=== PATIENT | male | born 1980 | race Caucasian/White ===

== ENCOUNTER → 2018-02-14 | Outpatient (CLI) | payer MEDICARE, OTHER ==
[2018-02-14 14:59] VITALS: BP 113/86; PULSE 96; RESP 16
--- NOTE | 2018-02-15 07:32 | P.PAINCN ---
History of Present Illness - Reason for Consult Consult date: 02/14/18 - History of Present Illness This is 57 years old male with a chronic history of severe low back pain, patient was diagnosed with lumbar spondylolisthesis, and he had multiple back surgeries the first surgery was when he was 15 years old, later on he had 2 lumbar fusion surgeries , and he did fairly well until 5-6 years ago when he started complaining of, severe low back pain and mid back pain that doesn't interfere with his quality of life, pain is constant with intensity of the pain fluctuates between 7/10 and increases with any activity to 10 over 10, he denies any motor or sensory deficits he denies any change in the bowel movement or urination, and he denies any fever or night sweats, he tried different kind of pain medication in the past, but none helped his pain. The pain is constant Associated with numbness and tingling sensation in the lower extremities. Past Medical History History of Any Multi-Drug Resistant Organisms: None Reported Past Surgical History: Back Surgery Additional Past Surgical History / Comment(s): lumbar spinal fusion 1995, lumbar fusion 2007, hardware 2013 Past Anesthesia/Blood Transfusion Reactions: No Reported Reaction Past Psychological History: Anxiety, Bipolar, Depression Smoking Status: Former smoker Past Alcohol Use History: Rare Past Drug Use History: Marijuana Additional Drug Use History / Comment(s): quit smoking cigarettes "1 week ago" Medications and Allergies Home Medications Medication Instructions Recorded Confirmed Type Ibuprofen [Motrin] 800 mg PO BID 02/14/18 02/14/18 History Lidocaine 5% Patch [Lidoderm 5% 2 patch TOPICAL DAILY 02/14/18 02/14/18 History Patch] Allergies Allergy/AdvReac Type Severity Reaction Status Date / Time No Known Allergies Allergy Verified 02/14/18 14:38 Physical Exam Vitals: Vital Signs Pulse Resp BP Pulse Ox 02/14/18 14:41 96 16 113/86 98 Social history : not smoker ( quit recently ) , NO ETOH , NO Illegal drugs use . Review of Systems : 1- Constitutional : no chills , no fever , no night sweats , 2- Ears : no ear discharge , no change in hearing 3-Nose, Mouth ,Throat ; no bleeding gums, no sore throat , no epistaxis , 4-Cardiovascular : Denies chest pain, , no orthopnea , no palpitation 5-Respiratory : Denies cough , no dyspnea , no hemoptysis 6-Gastrointestinal :, no change in bowel habits , no coffee- ground emesis . 7-Genitourinary : No hematuria , no discharge , no incontinence, 8-Musculoskeletal : No gait dysfunction , report low back pain , 9- Neurological : no ataxia , no tremor , no sezure , 10-Psychatric , no suicidal ideation no hallucination 11- Endocrine : no cold intolerence , no polyuria , no polydypsia , 12-Hematologic : no easy bleeding , no easy brusing , 13-Allergic / immunology : no angioedema , no wheezing ,no allergic rhinitis 14-Integumentary : no brttle nails , no change hair / nails , no foot/leg ulcers . Physical Examinations : 1-Constitutional : Cooperative , not in acute distress . 2-HEENT : nech ; supple , no Lymphadenopathy , no Thyromegaly , :eyes , no icterus, no photophobia . ENT : , normal oropharynx , no Thrush 3- Respiratory : Chest clear to auscultations Bilaterally , no wheezing . 4- Cardiovascular : regular rate and rhythem , S1 , S2 , no S3 , no S4. 5- Gastrointestinal: abdomen soft no tenderness , no organomegally . 6- Genitourinary : Defferred . 7-Integumentary : No cellulitis , no ulcers , normal skin turgor , no cyanotic . 8- neurologic : Cranial nerve II to XII intact , no focal neurological deffecit 9-psychatric : alert , oriented X 3 , appropriate affect , intact judgment and insight . 10-Lymphatic : no Lymphadenopathy. 11- musculoskeltal: normal gait Thoracic Spine : Multiple trigger points in the thoracic paravertebral muscles Lumber spine moter stegnth lower extremities ,thigh and legs 4/5 Right side , 5/5 Left side deep tendon reflexes : normal Knee Jerk , normal ankle Jerk positive lumber facet Loading Test Range of motion of the lumbar spine limited flexion and extension strait leg raising test , positive at 30 degree Fabere test positive RT and positive LT . Results Comments: MRI of the lumbar spine= reviewed Assessment and Plan Plan: Assessment and plan= postlaminectomy pain syndrome lumbar area, lumbar radiculopathy, myofascial pain syndrome thoracic area Patient could benefit from, and epidural steroid injection with lysis of epidural adhesions, and also he could benefit from trigger point injections thoracic area which can be done at the same time Patient could benefit from Neurontin 100 mg 3 times a day. Time with Patient: Greater than 30 PQRS Measure Charge Sheet Measure #130: Documentation of Current Meds in Medical Chart: Patient's medications documented in chart Measure #226: Tobacco Use: Screen & Cessation Intervention: Pt not a tobacco user Measure #111: Pneumonia Vaccination: Pneumococcal vaccine NOT administered or previously given Measure #47: Advance Care Plan: Advance care planning discussed & documented, pt chose/unable to give Measure #412: Opioid Treatment Agreement: No documentation of signed opioid treatment agreement Measure #408: Opioid Therapy Follow-up Evaluation: Patient had NO f/u eval minimum every 3 months during opioid therapy Measure #317: Preventitive Care & Scrn High Bld Press & F/U: Normal blood pressure, f/u not required Measure #128: Body Mass Index (BMI) Screening & Follow-up: BMI documented ABOVE normal parameters - f/u documented Measure #131: Pain Assessment & Follow-up: Pain positive & plan documented, Follow-up scheduled Measure #431: Unhealthy Alcohol Use Preventative Care & Scrn: Patient not identified as an unhealthy alcohol user PQRS Narrative: Smoking Status Former smoker Blood Pressure 113/86 Pain Intensity [Bilateral 7 Lower Back] Scale Used Numeric (1 - 10) Home Medications: Ambulatory Orders Ibuprofen [Motrin] 800 mg PO BID 02/14/18 Lidocaine 5% Patch [Lidoderm 5% Patch] 2 patch TOPICAL DAILY 02/14/18
== END | disposition home or self-care (01) ==
LOC: PNWHC3 12:58
PROVIDERS: ATTEND Specialist
DX: G89.29 Other chronic pain (principal); M54.5 Low back pain; M96.1 Postlaminectomy syndrome, not elsewhere classified; M43.16 Spondylolisthesis, lumbar region; M54.16 Radiculopathy, lumbar region; M79.1 Myalgia; F41.9 Anxiety disorder, unspecified; F32.9 Major depressive disorder, single episode, unspecified; Z98.890 Other specified postprocedural states; Z98.1 Arthrodesis status; Z87.891 Personal history of nicotine dependence; Z79.1 Long term (current) use of non-steroidal anti-inflammatories (NSAID)
CPT/HCPCS: 99211

== ENCOUNTER 2018-02-23 09:44 | Day surgery (SDC) | payer MEDICARE, OTHER ==
[2018-02-20 14:26] VITALS: BMI 25.8
[~2018-02-23 09:44] MED LIST: LACTATED RINGERS 1,000 ML IV SCH
[2018-02-23 10:36] VITALS: RESP 16; TEMP 99
[2018-02-23] MEDS ORDERED: LIDOCAINE 1% 20 ML VIAL (10MG/ML) FOR IV START INTRADERMA ONE (10:41)
--- NOTE | 2018-02-23 11:51 | P.PCN ---
Date of Procedure: 02/23/18 Procedure(s) Performed: PREOP DIAGNOSIS: 1- Lumbar postlaminectomy syndrome lumbar area. 2-myofascial pain syndrome thoracic area POSTOP DIAGNOSIS:1- Lumbar postlaminectomy syndrome lumbar area. 2- myofascial pain syndrome thoracic area. PROCEDURE:1- Caudal epidural steroid injection with epidurolysis and epidurogram under fluoroscopic guidance. 2- Trigger points injection thoracic paravertebral muscles total of 7 trigger points injected (4 on the right side thoracic paravertebral muscles, and 3 on the left side thoracic paravertebral muscles ) ANESTHESIA: Local with 1% lidocaine 3 ml ,and moderate sedation, with Versed 2 mg and fentanyl 200 g EBL: Minimal. PROCEDURE INDICATION: The patient with post-laminectomy syndrome with low back pain and radiculopathy radiating down in both legs, here for a caudal epidural steroid injection with epidurolysis. PROCEDURE DESCRIPTION: The patient was seen and identified in the preoperative area. Risks, benefits, complications, and alternatives were discussed with the patient. The patient agreed to proceed with the procedure and signed the consent. IV was started, and vital signs were stable. Patient was taken to the OR and time out was completed. The patient was placed in the prone position on procedure table and a pillow was placed under the abdomen to reduce lumbar lordosis. The lumbosacral area was prepped and draped in the usual sterile fashion. Vital signs were closely monitored during the procedure. lateral view and the anterior-posterior plates of the sacrum were identified with infiltration of the area overlying the sacral hiatus with 1% lidocaine .A 17 gauge RK epidural needle was used to advance through the sacral hiatus into the caudal epidural space. Omnipaque 180 dye. 2cc was injected and the position of the needle was verified to be in the midline. A Racz catheter was introduced into the epidural space and was advanced towards the L5-S1 interspace under direct fluoroscopic guidance. Multiple passes were made with the catheter for lysis of epidural adhesions.Depo-medrole 80 mg with 3ml of preservative free Lidocaine 1% and 5 ml of preservative free normal saline was injected slowly. Additional spread was seen to L4 under fluoroscopy. The needle and the catheter were withdrawn intact. Then the trigger point injections in sterile technique, each of the trigger point injected with bupivacaine 0.5% 2 mL injected at each trigger point after negative aspiration, There Was No Paresthesia during Injection, using 25-gauge needle, 4 trigger point injected in the right side thoracic paravertebral muscles and 3 on the left side thoracic paravertebral muscles. EPIDUROGRAM: Omnipaque 180 mg dye 2 ml was injected with spread of the dye into the caudal epidural space and with spread cutoff at L5 prior to epidurolysis. Post epidurolysis dye 2 ml was injected and spread was seen to L3- 4.There was further spread of the solution together with the dye above the L3 COMPLICATIONS: None. DISPOSITION / PLANS: The patient was placed in a supine position and transferred to the recovery area in a stable condition for observation and was discharged from the recovery room after meeting discharge criteria. Home discharge instructions given to the patient by the staff. The patient was reexamined prior to discharge. The patient will schedule a follow up in the clinic in 2-4 weeks.
[2018-02-23] MEDS ORDERED: IV FLUID CONTINUATION 1,000 ML IV ONE (11:53)
--- NOTE | 2018-02-23 11:56 | FL ---
EXAMINATION TYPE: FL guided pain mgmt statistic DATE OF EXAM: 02/23/2018 HISTORY: Flouroscopy time 6 seconds of fluoroscopy provided. IMPRESSION: 1. Fluoroscopy time.
[2018-02-23 11:57] VITALS: PULSE 75
[2018-02-23 12:09] VITALS: BP 116/76
== END 2018-02-23 12:22 | disposition home or self-care (01) ==
LOC: ORPAIN 09:44
PROVIDERS: ATTEND Specialist
DX: M96.1 Postlaminectomy syndrome, not elsewhere classified (principal); G96.12 Meningeal adhesions (cerebral) (spinal); M79.1 Myalgia; M54.16 Radiculopathy, lumbar region; F41.9 Anxiety disorder, unspecified; F31.9 Bipolar disorder, unspecified; Z79.1 Long term (current) use of non-steroidal anti-inflammatories (NSAID); Z79.899 Other long term (current) drug therapy; Z87.891 Personal history of nicotine dependence
CPT/HCPCS: 20553; 62264; J2250; J1030; J3010; Q9966; 62323; 99152; 99153

== ENCOUNTER 2018-03-21 09:13 | Day surgery (SDC) | payer MEDICARE, OTHER ==
[2018-03-20 08:46] VITALS: BMI 25.8
[~2018-03-21 09:13] MED LIST changes: -LACTATED RINGERS 1,000 ML IV SCH; +SODIUM CHLORIDE 0.9% 500 ML 500 ML IV SCH
[2018-03-21 09:33] VITALS: TEMP 98.1
--- NOTE | 2018-03-21 10:49 | P.PCN ---
Date of Procedure: 03/21/18 Procedure(s) Performed: PREOP DIAGNOSIS: 1- Lumbar postlaminectomy syndrome lumbar area. 2-myofascial pain syndrome thoracic area POSTOP DIAGNOSIS:1- Lumbar postlaminectomy syndrome lumbar area. 2- myofascial pain syndrome thoracic area. PROCEDURE:1- Caudal epidural steroid injection with epidurolysis and epidurogram under fluoroscopic guidance. 2- Trigger points injection thoracic paravertebral muscles total of 8trigger points injected (4 on the right side thoracic paravertebral muscles, and 4 on the left side thoracic paravertebral muscles ) ANESTHESIA: Local with 1% lidocaine 3 ml ,and moderate sedation, with Versed 3 mg and fentanyl 150 g EBL: Minimal. PROCEDURE INDICATION: The patient with post-laminectomy syndrome with low back pain and radiculopathy radiating down in both legs, here for a caudal epidural steroid injection with epidurolysis. PROCEDURE DESCRIPTION: The patient was seen and identified in the preoperative area. Risks, benefits, complications, and alternatives were discussed with the patient. The patient agreed to proceed with the procedure and signed the consent. IV was started, and vital signs were stable. Patient was taken to the OR and time out was completed. The patient was placed in the prone position on procedure table and a pillow was placed under the abdomen to reduce lumbar lordosis. The lumbosacral area was prepped and draped in the usual sterile fashion. Vital signs were closely monitored during the procedure. lateral view and the anterior-posterior plates of the sacrum were identified with infiltration of the area overlying the sacral hiatus with 1% lidocaine .A 17 gauge RK epidural needle was used to advance through the sacral hiatus into the caudal epidural space. Omnipaque 180 dye. 2cc was injected and the position of the needle was verified to be in the midline. A Racz catheter was introduced into the epidural space and was advanced towards the L5-S1 interspace under direct fluoroscopic guidance. Multiple passes were made with the catheter for lysis of epidural adhesions.Depo-medrole 80 mg with 3ml of preservative free Lidocaine 1% and 5 ml of preservative free normal saline was injected slowly. Additional spread was seen to L4 under fluoroscopy. The needle and the catheter were withdrawn intact. Then the trigger point injections in sterile technique, each of the trigger point injected with bupivacaine 0.5% 2 mL injected at each trigger point after negative aspiration, There Was No Paresthesia during Injection, using 25-gauge needle, 4 trigger point injected in the right side thoracic paravertebral muscles and 4 on the left side thoracic paravertebral muscles. EPIDUROGRAM: Omnipaque 180 mg dye 2 ml was injected with spread of the dye into the caudal epidural space and with spread cutoff at L5 prior to epidurolysis. Post epidurolysis dye 2 ml was injected and spread was seen to L4- 5.There was further spread of the solution together with the dye above the L4 COMPLICATIONS: None. DISPOSITION / PLANS: The patient was placed in a supine position and transferred to the recovery area in a stable condition for observation and was discharged from the recovery room after meeting discharge criteria. Home discharge instructions given to the patient by the staff. The patient was reexamined prior to discharge. The patient will schedule a follow up in the clinic in 2-4 weeks.
[2018-03-21 11:01] VITALS: RESP 18
[2018-03-21 11:25] VITALS: BP 124/78; PULSE 86
--- NOTE | 2018-03-21 13:17 | FL ---
Fluoroscopy HISTORY: Pain 4 seconds fluoroscopy time supplied to the referring clinician. 3 intraoperative C-arm images docume nt the procedure. See dictated report from anesthesia.
== END 2018-03-21 11:26 | disposition home or self-care (01) ==
LOC: ORPAIN 09:13
PROVIDERS: ATTEND Specialist
DX: M96.1 Postlaminectomy syndrome, not elsewhere classified (principal); M79.18 Myalgia, other site
CPT/HCPCS: 20552; 62264; J2250; J1030; J3010; Q9966; C1894; 20553; 99152